=== PATIENT | female | born 1955 | race Caucasian/White ===

== ENCOUNTER → 2020-11-13 15:45 | Outpatient (BNVA) | payer MEDICARE, MEDICAID, SELFPAY | PROVIDERS: Family Provider Internal Medicine; PCP Internal Medicine; Visit Provider Internal Medicine | DX: R00.2 Palpitations (principal) | CPT/HCPCS: 80053; 84443; 85025 ==

== ENCOUNTER → 2020-11-28 10:48 | Outpatient (BNVA) | payer MEDICARE, MEDICAID, SELFPAY | PROVIDERS: Family Provider Internal Medicine; PCP Internal Medicine; Visit Provider Internal Medicine | DX: R00.2 Palpitations (principal); C91.90 Lymphoid leukemia, unspecified not having achieved remission; R30.0 Dysuria; Z78.0 Asymptomatic menopausal state | CPT/HCPCS: 81000 ==

== ENCOUNTER 2020-12-13 12:44 | Outpatient (CLI) | payer MEDICARE, MEDICAID, SELFPAY ==
--- NOTE | 2020-12-13 12:56 | USCV_ITS ---
Jhonny Marcie Age: 65 Gender: F : 1955 Exam Date: 12/13/2020 12:59 Ordering Phys: Reuben Gage MD Technologist: Vida Mei Exam Location: [facility] [place] Indication: PALPITATIONS BP: / HR: 71 Rhythm: Sinus Technical Quality: Adequate MEASUREMENTS (Male / Female) Normal Values 2D ECHO LV Diastolic Diameter PLAX 4.0 cm 4.2 - 5.9 / 3.9 - 5.3 cm LV Systolic Diameter PLAX 3.2 cm LV Chamber Size 3.7 cm IVS Diastolic Thickness 1.6 cm 0.6 - 1.0 / 0.6 - 0.9 cm IVS Systolic Thickness 2.0 cm LVPW Diastolic Thickness 2.0 cm 0.6 - 1.0 / 0.6 - 0.9 cm LVPW Systolic Thickness 1.7 cm RV Chamber Size 2.7 cm LVOT Diameter 2.1 cm LV Ejection Fraction 2D Teich 44.9 % LV Ejection Fraction MOD 2C 37.0 % LV Ejection Fraction 2C AL 34.0 % LA Diameter 3.7 cm LA Width 3.9 cm LA Height 5.8 cm RA Width 3.1 cm RA Height 4.7 cm Aorta at Sinotubular Diameter 3.3 cm M-MODE LV Diastolic Diameter MM 5.7 cm 4.2 - 5.9 / 3.9 - 5.3 cm LV Systolic Diameter MM 3.3 cm LV Ejection Fraction MM Teich 73.6 % IVS Diastolic Thickness MM 1.1 cm 0.6 - 1.0 / 0.6 - 0.9 cm IVS Systolic Thickness MM 1.7 cm LVPW Diastolic Thickness MM 1.3 cm 0.6 - 1.0 / 0.6 - 0.9 cm LVPW Systolic Thickness MM 2.0 cm Aortic Annulus Diameter 3.3 cm LA Ao Ratio MM 1.4 MV E Point Septal Separation 0.4 cm DOPPLER AV Peak Velocity 158.0 cm/s LVOT Peak Velocity 102.0 cm/s AV Area Cont Eq vti 2.4 cm squared AV Area Cont Eq pk 2.3 cm squared MV Area PHT 4.2 cm squared Mitral E to A Ratio 1.2 MV E' Velocity 51.5 cm/s Mitral E to MV E' Ratio 11.2 Mitral E to LV E' Lateral Ratio 11.1 Mitral E to LV E' Septal Ratio 11.5 TR Peak Velocity 209.7 cm/s TR Peak Gradient 17.6 mmHg TR Mean Velocity 144.4 cm/s TR Mean Gradient 10.0 mmHg TR Velocity Time Integral 48.2 cm TV Peak E Velocity 63.0 cm/s Right Atrial Pressure 3.0 mmHg Pulmonary Artery Systolic Pressu 20.6 mmHg PV Peak Velocity 77.0 cm/s RV Acceleration Time 0.2 s RV Ejection Time 0.4 s RV AcT/ET 0.4 FINDINGS Left Ventricle Normal left ventricular size and systolic function with no diagnostic regional wall motion abnormalities. Left ventricular ejection fraction is estimated at 60 %. Normal diastolic function. Right Ventricle Normal right ventricular size and systolic function. Right ventricular systolic pressure 20.6 mmHg. Right Atrium Normal right atrial size. Right atrial pressure estimated at 3 mm Hg, Left Atrium Normal left atrial size. Mitral Valve Thickened mitral valve. No mitral valve stenosis. No mitral valve regurgitation. Aortic Valve Aortic valve not well visualized. No aortic valve stenosis. No aortic valve regurgitation. Tricuspid Valve Tricuspid valve not well visualized. Trace tricuspid valve regurgitation. Pulmonic Valve Pulmonic valve not well visualized. No pulmonary valve stenosis. Trace pulmonary valve regurgitation. Pericardium No pericardial effusion. Aorta Normal size aortic root. CONCLUSIONS 1. Normal left ventricular size and systolic function with no diagnostic regional wall motion abnormalities. Left ventricular ejection fraction is estimated at 60 %. Normal diastolic function. 2. Normal right ventricular size and systolic function. 3. No significant valvular abnormalities. 4. Normal pulmonary artery pressure. 5. No significant change when compared to study dated 09/18/2017. Carmen Sheffield MD (Electronically Signed) Final Date: 16 Dec 2020 15:56 S
== END 2020-12-13 12:45 | disposition home or self-care (01) ==
LOC: RAD 12:47
PROVIDERS: PCP Internal Medicine; Visit Provider Internal Medicine
DX: R00.2 Palpitations (principal)
CPT/HCPCS: 93306

== ENCOUNTER 2021-01-11 13:50 | Outpatient (CLI) | payer MEDICARE, MEDICAID, SELFPAY ==
--- NOTE | 2021-01-11 14:30 | MM_ITS ---
WS: [id number] SCREENING DIGITAL MAMMOGRAM WITH CAD HISTORY: Z12.31 - Encounter for screening mammogram for malignant ... COMPARISON: 10/15/2018 and 08/25/2016 Bilateral CC and MLO views submitted. Computer aided detection analyzed. Breast composition: There are scattered areas of fibroglandular density. Asymmetry measuring 11 mm in the lateral RIGHT breast has been present on prior studies but appears slightly more prominent on to day's study. This asymmetry is seen really only on the CC projection. Otherwise negative. MM/[place] [id number] IMPRESSION: BI-RADS: 0-Incomplete: Need additional imaging evaluation FOLLOW UP: Need Additional Imaging RIGHT breast: Spot compression views (CC and MLO). True ML. Ultrasound to follo w if abnormality persists.
--- NOTE | 2021-01-11 14:38 | XR_ITS ---
WS: [id number] SCREENING DEXA SCAN [place] [employer] CLINICAL INFORMATION: Z78.0 - Asymptomatic menopausal state COMPARISON: 3 29,019 FINDINGS: The L1-L4 bone mineral density measures 1.154 g/cm2. This corresponds to a T score score of -0.2 and Z score of 0.2. Left femoral neck bone mineral density measures 1.120 g/cm2. This corresponds to a T score of 0.9 and Z score of 1.3. Right femoral neck bone mineral density measures 1.090 g/cm2. This corresponds to a T score 0.7of and Z score of 1.0. Mean femoral neck bone mineral density measures 1.105 g/cm2. This corresponds to a T score of 0.8 and Z score of 1.1. XR/XR DEXA axial skeleton* [id number] IMPRESSION: Normal bone mineralization. Patient's FRAX calculated 10 year probability for major osteoporotic fracture i s 12.0 % and osteoporotic hip fracture is 0.9%.
== END 2021-01-11 13:51 | disposition home or self-care (01) ==
PROVIDERS: PCP Internal Medicine; Visit Provider Internal Medicine
DX: Z12.31 Encounter for screening mammogram for malignant neoplasm of breast (principal); Z78.0 Asymptomatic menopausal state
CPT/HCPCS: 77067; 77080

== ENCOUNTER → 2021-08-19 09:25 | Outpatient (BNVA) | payer MEDICARE, MEDICAID, SELFPAY | PROVIDERS: PCP Internal Medicine; Visit Provider Internal Medicine | DX: Z86.010 Personal history of colon polyps (principal); Z20.822 Contact with and (suspected) exposure to COVID-19 | CPT/HCPCS: 87635 ==

== ENCOUNTER 2021-08-26 06:08 | Day surgery (SDC) | payer MEDICARE, MEDICAID, SELFPAY ==
[2021-08-22 08:53] VITALS: BMI 41.3
[2021-08-26 06:35] VITALS: BP 204/111; PULSE 96; RESP 20; TEMP 36.5; O2SAT 94
--- NOTE | 2021-08-26 06:39 | P.ANESASSM_ITS ---
Pre-Anesthetic Assessment Height/Weight: Height 1.63 m Weight 109.316 kg Operation Date: 08/26/21 07:00 Proposed Procedures p Colonoscopy [id number] Z86.010(Not Applicable) - Reuben Gage MD Social No alcohol and No tobacco Airway Submandibular: within normal limits Cervical ROM: within normal limits Mallampati: Class II Dentition: full Pulmonary Asthma and Sleep Apnea CV/HEM COVID test came back positive patient reports they arent symptomatic 7 days prior. None reported Hepatic enlarged liver. GI Gastroesophageal Reflux Disease Metabolic Morbid Obesity and Thyroid Disease Leukemia Neuropsych Anxiety and Depression Anesthetic Plan ASA status: 3 Medications/Allergies Home Medications Medication Instructions Recorded Confirmed Last Taken Type ibrutinib 420 mg tablet (Imbruvica) 420 mg PO DAILY 11/13/20 08/26/21 08/19/21 History dexlansoprazole 60 mg See Rx Instructions .ROUTE 01/28/21 08/22/21 08/25/21 Rx capsule,biphase delayed release .COMPLEX #90 cap (Dexilant) docusate sodium 100 mg capsule See Rx Instructions .ROUTE 04/18/21 08/22/21 08/25/21 Rx (Stool Softener) .COMPLEX #60 cap cyclobenzaprine 10 mg tablet 10 mg PO .AT BEDTIME PRN #30 tab 06/17/21 08/22/21 08/25/21 Rx MDD 3 levothyroxine 100 mcg tablet 100 mcg PO DAILY 08/22/21 08/26/21 08/26/21 03:00 History albuterol sulfate 90 mcg/actuation 2 inh INHALATION DIRECTED PRN 08/26/21 08/26/21 Unknown History aerosol inhaler (Ventolin HFA) budesonide-formoterol HFA 160 2 inh INHALATION BID PRN 08/26/21 08/26/21 Unknown History mcg-4.5 mcg/actuation aerosol inhaler (Symbicort) fluticasone propionate 50 2 spray INTRANASAL DAILY PRN 08/26/21 08/26/21 Unknown History mcg/actuation nasal spray,suspension Allergies Allergy/AdvReac Type Severity Reaction Status Date / Time ivp dye Allergy hives Uncoded 08/22/21 09:06 [facility] Anesthesia Medical History (Updated 08/12/21 @ 15:43 by Reuben Gage MD) Leukemia, lymphocytic COURTNEY (obstructive sleep apnea) Family History Other Diabetes Hypertension Social History Smoking and tobacco status: former smoker Alcohol intake: never Household members: spouse Housing: House Marital status: History of recent travel: No Data Anesthesia Cardiac Studies: Echocardiogram Ultrasound 12/13/20 Holter Monitor 11/28/20
[2021-08-26] MEDS: sodium chloride 0.9% 1,000 ML 30 ML IV (06:43)
--- NOTE | 2021-08-26 07:14 | P.HP_ITS ---
Providers/Chief Complaint Primary Care Provider: Reuben Gage MD Chief Complaint: Personal hx of colon polyps History of Present Illness Marcie Barry is a 65 year old female Medications/Allergies Home Medications Medication Instructions Recorded Confirmed Last Taken Type ibrutinib 420 mg tablet (Imbruvica) 420 mg PO DAILY 11/13/20 08/26/21 08/19/21 History dexlansoprazole 60 mg See Rx Instructions .ROUTE 01/28/21 08/22/21 08/25/21 Rx capsule,biphase delayed release .COMPLEX #90 cap (Dexilant) docusate sodium 100 mg capsule See Rx Instructions .ROUTE 04/18/21 08/22/21 08/25/21 Rx (Stool Softener) .COMPLEX #60 cap cyclobenzaprine 10 mg tablet 10 mg PO .AT BEDTIME PRN #30 tab 06/17/21 08/22/21 08/25/21 Rx MDD 3 levothyroxine 100 mcg tablet 100 mcg PO DAILY 08/22/21 08/26/21 08/26/21 03:00 History albuterol sulfate 90 mcg/actuation 2 inh INHALATION DIRECTED PRN 08/26/21 08/26/21 Unknown History aerosol inhaler (Ventolin HFA) budesonide-formoterol HFA 160 2 inh INHALATION BID PRN 08/26/21 08/26/21 Unknown History mcg-4.5 mcg/actuation aerosol inhaler (Symbicort) fluticasone propionate 50 2 spray INTRANASAL DAILY PRN 08/26/21 08/26/21 Unknown History mcg/actuation nasal spray,suspension Allergies Allergy/AdvReac Type Severity Reaction Status Date / Time ivp dye Allergy hives Uncoded 08/22/21 09:06 PFSH PFSH: Medical History (Updated 08/12/21 @ 15:43 by Reuben Gage MD) Leukemia, lymphocytic COURTNEY (obstructive sleep apnea) Family History Other Diabetes Hypertension Social History Smoking and tobacco status: former smoker Alcohol intake: never Household members: spouse Housing: House Marital status: History of recent travel: No Vital Signs Vitals Signs: Last Vital Signs Temp 97.7 F 08/26/21 06:35 Pulse 96 08/26/21 06:35 Resp 20 H 08/26/21 06:35 BP 204/111 08/26/21 06:35 Pulse Ox 94 08/26/21 06:35 Coding Level of Care Code Acute Home Care Manager for Emeka Cortes
[2021-08-26 07:37] VITALS: BP 150/73; PULSE 89; RESP 18; TEMP 36.2; O2SAT 94
[2021-08-26 07:49] VITALS: BP 123/69; PULSE 83; RESP 16; O2SAT 95
--- NOTE | 2021-08-26 08:35 | ANE.PACU2 ---
Inpatient post-anesthesia follow up: Vital signs: Temperature 97.1 F Pulse Rate 83 Respiratory Rate 16 Blood Pressure 123/69 Pulse Oximetry 95 Oxygen Delivery Me thod Room Air Oxygen Flow Rate 3 Fraction of Inspir ed Oxygen Hydration adequate: Yes Nausea and vomiting: No Mental status: Baseline
== END 2021-08-26 07:57 | disposition home or self-care (01) ==
PROVIDERS: PCP Internal Medicine; Visit Provider Internal Medicine
PROC: 0DJD8ZZ Inspection of Lower Intestinal Tract, Via Natural or Artificial Opening Endoscopic (ICD-10-PCS; CPT 45378; principal; 2021-08-26 07:00)
DX: Z12.11 Encounter for screening for malignant neoplasm of colon (principal); Z86.010 Personal history of colon polyps; K57.30 Diverticulosis of large intestine without perforation or abscess without bleeding; J45.909 Unspecified asthma, uncomplicated; K21.9 Gastro-esophageal reflux disease without esophagitis; E66.01 Morbid (severe) obesity due to excess calories; Z68.41 Body mass index [BMI] 40.0-44.9, adult; G47.33 Obstructive sleep apnea (adult) (pediatric); Z87.891 Personal history of nicotine dependence
CPT/HCPCS: 45378; J2704; J3490; J7030

== ENCOUNTER 2025-04-03 08:23 | Outpatient (CLI) | payer MEDICARE, MEDICAID, SELFPAY ==
--- NOTE | 2025-04-03 08:33 | MM_ITS ---
WS: [id number] DIAGNOSTIC BILATERAL DIGITAL BREAST TOMOSYNTHESIS MAMMOGRAPHY WITH CAD HISTORY: DENSE BREASTS, patient did not return for diagnostic mammogram as recommended on the prior screening of 01/11/2021. COMPARISON: 01/11/2021, 10/15/2018 TECHNIQUE: Bilateral craniocaudad, mediolateral oblique, and mediolateral views are submitted with tomosynthesis and SM. Computer aided detection utilized. Breast composition: There are scattered areas of fibroglandular density. Long-term stability asymmetries in the upper outer quadrant of each breast. No suspicious mass or distortion. Benign calcifications. MM/MM diag BI tomosynthesis [id number] IMPRESSION: BI-RADS: 2 - Benign. FOLLOW UP: 1 Year Follow-up
== END 2025-04-03 08:24 | disposition home or self-care (01) ==
LOC: RAD 08:26
PROVIDERS: PCP Internal Medicine; Visit Provider Internal Medicine
DX: R92.30 Dense breasts, unspecified (principal); R92.323 Mammographic fibroglandular density, bilateral breasts; R92.8 Other abnormal and inconclusive findings on diagnostic imaging of breast
CPT/HCPCS: 77062; G0279